=== PATIENT | female | born 1935 | race Caucasian/White ===

== ENCOUNTER 2022-05-23 03:42 | Emergency (ER) | payer MEDICARE, BC ==
[2022-05-23] MEDS ORDERED: Metoprolol Tartrate 5 MG/5 ML SDV IVPUSH ONE ×2 (04:10→04:36)
[2022-05-23] MEDS ORDERED: Sodium Chloride 0.9% 1,000 ML IV ONE (04:13)
[2022-05-23] MEDS ORDERED: Digoxin 500 MCG/2 ML Amp IVPUSH ONE (04:55)
[2022-05-23] MEDS ORDERED: Diltiazem 25 MG/5 ML SDV IVPUSH ONE (05:12)
[2022-05-23] MEDS ORDERED: Diltiazem 125 MG in Sodium Chloride 0.9% 100 ML IV SCH (05:15)
[2022-05-23] MEDS ORDERED: Sodium Chloride 0.9% 100 ML ONE (05:18)
[2022-05-23 05:34] VITALS: BP 91/54
[2022-05-23 05:47] VITALS: PULSE 104
== END 2022-05-23 05:50 ==
LOC: KA.ED 03:42
DX: I21.4 Non-ST elevation (NSTEMI) myocardial infarction (principal); I48.91 Unspecified atrial fibrillation; I10 Essential (primary) hypertension; Z88.8 Allergy status to other drugs, medicaments and biological substances; Z79.899 Other long term (current) drug therapy
CPT/HCPCS: 36415; 80053; 84484; 85027; 93005; 93010; 96361; 96374; 96375; 96376; 99284; 99285-25; J1160; J3490; J7030

== ENCOUNTER 2024-10-02 12:40 | Emergency (ER) | payer MEDICARE, BC ==
[2024-10-02 12:56] VITALS: BP 145/73; PULSE 64
[2024-10-02] MEDS ORDERED: Sodium Chloride 0.9% 10 ML Syringe FLUSH PRN (12:56)
[2024-10-02 13:13] LABS: BASOPHILS ABSOLUTE AUTO 0.03 10^3/uL (0.00-0.10); BASOPHILS PERCENT AUTO 0.3 % (0.0-1.0); EOSINOPHILS ABSOLUTE AUTO 0.07 10^3/uL (0.10-0.30); EOSINOPHILS PERCENT AUTO 0.7 % (1.0-3.0); HEMATOCRIT 40.9 % (37.0-47.0); HEMOGLOBIN 14.1 g/dL (12.0-16.0); IMMATURE GRAN ABSOLUTE AUTO 0.02 10^3/uL (0.00-0.04); IMMATURE GRAN PERCENT AUTO 0.2 % (0.0-0.4); LYMPHOCYTES ABSOLUTE AUTO 1.47 10^3/uL (1.00-4.00); LYMPHOCYTES PERCENT AUTO 14.5 % (20.0-40.0); MEAN CORPUSCULAR HEMOGLOBIN 30.4 pg (27.0-31.0); MEAN CORPUSCULAR HGB CONC 34.5 g/dL (32.0-36.0); MEAN CORPUSCULAR VOLUME 88.1 fL (82.0-92.0); MEAN PLATELET VOLUME 9.3 fL (7.4-10.4); MONOCYTES ABSOLUTE AUTO 0.76 10^3/uL (0.10-0.80); MONOCYTES PERCENT AUTO 7.5 % (2.0-8.0); NEUTROPHILS ABSOLUTE AUTO 7.78 10^3/uL (2.50-7.00); NEUTROPHILS PERCENT AUTO 76.8 % (50.0-70.0); PLATELET COUNT,PLT 271 10^3/uL (150-400); RED BLOOD CELL COUNT 4.64 10^6/uL (3.80-5.50); RED CELL DISTRIBUTION WIDTH 12.7 % (11.5-14.5); WHITE BLOOD CELL COUNT,WBC 10.13 10^3/uL (5.00-10.00)
[2024-10-02 13:41] LABS: ALBUMIN 3.88 g/dL (3.40-5.00); ANION GAP 12.5 mmol/L (5-15); BILIRUBIN TOTAL 0.4 mg/dL (0.2-1.0); C-REACTIVE PROTEIN 0.6 mg/dL (0.00-0.50); CALCIUM 10.2 mg/dL (8.7-10.3); CARBON DIOXIDE,CO2 29.3 mmol/L (21.0-32.0); CREATININE 0.5 mg/dL (0.51-1.17); EST CRCL DRUG DOSING (CG) 56.94 mL/min; POTASSIUM,K 3.8 mmol/L (3.5-5.1); PROTEIN TOTAL,TP 6.6 g/dL (6.4-8.2); TSH ULTRASENSITIVE 2.198 uIU/mL (0.340-4.820)
== END 2024-10-02 14:28 | disposition home or self-care (01) ==
LOC: KA.ED 12:40
DX: R00.2 Palpitations (principal); C91.01 Acute lymphoblastic leukemia, in remission; I10 Essential (primary) hypertension; I48.91 Unspecified atrial fibrillation; Z86.79 Personal history of other diseases of the circulatory system; Z88.6 Allergy status to analgesic agent; Z88.1 Allergy status to other antibiotic agents; Z88.8 Allergy status to other drugs, medicaments and biological substances; Z88.7 Allergy status to serum and vaccine; Z79.899 Other long term (current) drug therapy
CPT/HCPCS: 36415; 71045; 80053; 83880; 84443; 84484; 85025; 86140; 93005; 93010; 99284